=== PATIENT | male | born 2000 | race Caucasian/White ===

== ENCOUNTER 2019-09-23 12:12 | Emergency (ER) | payer SELFPAY ==
[~2019-09-23] VITALS: Ht 172.7 cm; Wt 83.9 kg
[2019-09-23 12:29] VITALS: BP_SYST 144
--- NOTE | 2019-09-23 12:29 | NUR ---
Placed in room H1. To gown for exam. Side rails up. Assumed care.
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
--- NOTE | 2019-09-23 12:32 | NUR ---
ER at bedside examining patient.
--- NOTE | 2019-09-23 12:45 | NUR ---
Patients wound is cleansed with normal saline and gauze, applied bacitracin and gauze.
[2019-09-23 12:49] VITALS: BP_SYST 144
--- NOTE | 2019-09-23 12:49 | NUR ---
Patient given written and verbal discharge instructions and verbalizes understanding. ER MD discussed with patient the results and treatment provided. Patient in stable condition. ID arm band removed. Rx not given. Patient educated on pain management and to follow up with PMD. Pain Scale 0/10. Opportunity for questions provided and answered. Medication side effect fact sheet provided.
[2019-09-23] MEDS ORDERED: BACITRACIN 1 GM OINT TP ONE (12:54)
== END 2019-09-23 12:49 ==
LOC: SED 12:12
DX: S80.212A Abrasion, left knee, initial encounter (principal); V27.4XXA Motorcycle driver injured in collision with fixed or stationary object in traffic accident, initial encounter; Y93.89 Activity, other specified; Y92.89 Other specified places as the place of occurrence of the external cause; Y99.8 Other external cause status
CPT/HCPCS: 99283